=== PATIENT | female | born 1940 | race American Indian/Alaskan Native ===

== ENCOUNTER 2022-06-26 11:56 | Emergency (ER) | payer MEDICARE ==
[2022-06-26 12:56] VITALS: BP 159/72
--- NOTE | 2022-06-26 13:06 | Emergency Department Report ---
ED ENT HPI - General Chief complaint: Dental/Oral Stated complaint: RIGHT FACE DROOPING/POST TOOTH EXTRACTION X2 DAYS Time Seen by Provider: 06/26/22 13:00 Source: patient Mode of arrival: Ambulatory Limitations: No Limitations - History of Present Illness Initial comments: 82-year-old black female with a past medical history of CVA, hypertension, and h yperlipidemia presents to the emergency department for evaluation of right facial swelling and droop. She states that she had a dental implant removed yesterday along with the extraction of another tooth 2 days ago and states that she woke up this morning with swelling to her right face. She states that she has a history of a CVA and was concerned that she may be having facial droop. She denies any unilateral weakness, difficulty speaking, difficulty walking, headache, or any other symptoms. MD complaint: tooth pain, other (Swelling to the right facial area) Severity: mild Severity scale (0 -10): 3 Quality: aching Associated Symptoms: gum swelling, toothache. denies: fever, cough, pain with swallowing, sore throat, tinnitus, hearing loss, discharge from ear, rhinorrhea - Related Data Allergies Allergy/AdvReac Type Severity Reaction Status Date / Time meperidine [From Demerol] Allergy Nausea Verified 06/26/22 13:02 ED Dental HPI - General Chief complaint: Dental/Oral Stated complaint: RIGHT FACE DROOPING/POST TOOTH EXTRACTION X2 DAYS Time Seen by Provider: 06/26/22 13:00 Source: patient Mode of arrival: Ambulatory Limitations: No Limitations - Related Data Allergies Allergy/AdvReac Type Severity Reaction Status Date / Time meperidine [From Demerol] Allergy Nausea Verified 06/26/22 13:02 ED Review of Systems ROS: Stated complaint: RIGHT FACE DROOPING/POST TOOTH EXTRACTION X2 DAYS Other details as noted in HPI Comment: All other systems reviewed and negative Constitutional: denies: chills, fever ENT: dental pain. denies: congestion Respiratory: denies: shortness of breath Cardiovascular: denies: chest pain, palpitations Gastrointestinal: denies: abdominal pain, nausea, vomiting Musculoskeletal: denies: back pain Neurological: denies: headache, weakness, numbness, paresthesias, confusion, abnormal gait, vertigo Psychiatric: denies: anxiety, depression ED Physical Exam - General Limitations: No Limitations General appearance: alert, in no apparent distress - Head Head exam: Present: atraumatic, normocephalic - Eye Eye exam: Present: normal appearance. Absent: conjunctival injection, periorbital swelling, periorbital tenderness - Expanded ENT Exam Expanded Teeth exam: Present: dental tenderness # (2), other (Gums noted to be erythematous, edematous, and tender to touch around tooth #2) - Neck Neck exam: Present: normal inspection, full ROM. Absent: tenderness, lymphadenopathy - Respiratory Respiratory exam: Present: normal lung sounds bilaterally. Absent: respiratory distress, wheezes, rales, rhonchi, stridor, chest wall tenderness, accessory muscle use - Cardiovascular Cardiovascular Exam: Present: regular rate, normal heart sounds - GI/Abdominal GI/Abdominal exam: Present: soft, normal bowel sounds. Absent: distended, tenderness, guarding, rebound, rigid - Extremities Exam Extremities exam: Present: normal inspection, normal capillary refill - Back Exam Back exam: Present: normal inspection - Neurological Exam Neurological exam: Present: alert, oriented X3, CN II-XII intact, normal gait, reflexes normal. Absent: motor sensory deficit - Expanded Neurological Exam Expanded Patient oriented to: Present: person, place, time Speech: Present: fluid speech Cranial nerves: EOM's Intact: Normal, Gag Reflex: Normal, Tongue Deviation: Normal, Nystagmus: Normal, Facial Sensation: Normal Ataxia: Absent: yes Cerebellar function: Finger to Nose: Normal, Heel to Brock: Normal, Romberg: Normal Sensory exam: Upper Extremity Light Touch: Normal, Upper Extremity Temperature: Normal, Lower Extremity Light Touch: Normal, Lower Extremity Temperature: Normal Motor strength exam: RUE: 5, LUE: 5, RLE: 5, LLE: 5 Best Eye Response (Picher): (4) open spontaneously Best Motor Response (Ruben): (6) obeys commands Best Verbal Response (Picher): (5) oriented Picher Total: 15 - Psychiatric Psychiatric exam: Present: normal affect, normal mood - Skin Skin exam: Present: warm, dry, intact, normal color ED Course Vital Signs 06/26/22 12:51 Temperature 98.5 F Pulse Rate 72 Respiratory 16 Rate Blood Pressure 159/72 [Right] O2 Sat by Pulse 100 Oximetry ED Medical Decision Making - Medical Decision Making 82-year-old black female with a past medical history of CVA, hypertension, and hyperlipidemia presents to the emergency department for evaluation of right facial swelling and droop. She states that she had a dental implant removed yesterday along with the extraction of another tooth 2 days ago and states that she woke up this morning with swelling to her right face. She states that she has a history of a CVA and was concerned that she may be having facial droop. She denies any unilateral weakness, difficulty speaking, difficulty walking, headache, or any other symptoms. Physical exam unremarkable. Neuro exam unremarkable. Patient noted to have swelling to the gums and tissues around tooth #2 along with swelling to face in the area. No signs of stroke noted. Exam most consistent with dental swelling secondary to procedures on 816. Patient advised to follow-up with her dentist as previously planned. He is advised to return to the emergency department as needed. She verbalizes understanding of and agreement with plan of care. Critical care attestation.: If time is entered above; I have spent that time in minutes in the direct care of this critically ill patient, excluding procedure time. ED Disposition Clinical Impression: Swelling associated with dental structure Disposition: 01 HOME / SELF CARE / HOMELESS Is pt being admited?: No Does the pt Need Aspirin: No Condition: Stable Instructions: Dental Extraction, [id number], Dental Extraction, Care After Additional Instructions: Follow-up with your dentist as planned. Return to the emergency department as needed. Time of Disposition: 13:04
== END 2022-06-26 13:15 | disposition home or self-care (01) ==
LOC: ED 11:56
DX: K08.89 Other specified disorders of teeth and supporting structures (principal)
CPT/HCPCS: 99282